=== PATIENT | female | born 1990 | race Hispanic/Latino ===

== ENCOUNTER 2019-03-29 04:58 | Inpatient (IN) | payer SELFPAY ==
[2019-03-29 05:37] VITALS: BMI 27.7
[2019-03-29] MEDS ORDERED: Penicillin G Potassium 5 MILL.UNITS VIAL ONE (07:07)
[2019-03-29] MEDS: Lactated Ringer's 1,000 ML IV SCH ×3 (07:30→13:38)
[2019-03-29] MEDS ORDERED: NS / Oxytocin 40 units/1000ml 1,000 ML IV PRN (08:39)
[2019-03-29] MEDS ORDERED: Lidocaine 1% (PF) 30 ML VIAL SC PRN (08:39)
[2019-03-29] MEDS ORDERED: Ondansetron PF 4 MG/2 ML Vial IVP PRN ×2 (08:39→17:50)
[2019-03-29] MEDS ORDERED: Methylergonovine 0.2 MG/ML VIAL IM PRN (08:39)
[2019-03-29] MEDS ORDERED: Butorphanol Tartrate 1 MG/ML VIAL SLOW IVP PRN (08:39)
[2019-03-29] MEDS ORDERED: Diphenoxylate HCl/Atropine Tablet PO PRN (08:39)
[2019-03-29] MEDS ORDERED: HYDROcodone/Acetaminophen 5/325 mg Tablet PO PRN ×3 (08:39→17:50)
[2019-03-29] MEDS ORDERED: Carboprost 250 MCG/ML AMP IM PRN (08:39)
[2019-03-29] MEDS ORDERED: Ibuprofen 800 MG TAB PO PRN (08:39)
[2019-03-29] MEDS ORDERED: Promethazine HCl 25 MG/ML VIAL IM PRN ×2 (08:39→17:50)
[2019-03-29] MEDS ORDERED: Misoprostol 200 MCG TAB PR PRN (08:39)
[2019-03-29] MEDS ORDERED: Penicillin G Potassium 5 MILL.UNITS in Sodium Chloride 0.9% 100 ML IVPB SCH (08:45)
[2019-03-29] MEDS ORDERED: NS w/ Oxytocin 10 units 500 ML IV SCH ×2 (08:45)
[2019-03-29 09:07] LABS: Hemoglobin 12.6 g/dL (12.0-16.0); Mean Corpuscular HGB CONC 33.5 g/dL (32.0-36.0); Mean Corpuscular Hemoglobin 32.9 pg (27.0-31.0); Mean Corpuscular Volume 98.3 fL (78.0-98.0); Mean Platelet Volume 8.8 fL (7.4-10.4); Platelet Count 184 thou/uL (130-400); RBC Distribution Width 12.5 % (11.5-14.5); Red Blood Cell (RBC) Count 3.83 mill/uL (4.20-5.40); White Blood Cell (WBC) Count 12.2 thou/uL (4.8-10.8)
[2019-03-29] MEDS ORDERED: NS w/ Oxytocin 10 units 500 ML ONE (09:16)
[2019-03-29 10:16] LABS: Syphilis Antibody Nonreactive (Nonreactive); Syphilis Antibody Index 0.03 S/CO (<1.00 Non-Reactive)
[2019-03-29 11:06] LABS: HBSAg Index 0.37 S/CO (0-0.99); Hep B Surf Ag Non-Reactive S/CO (NonReactive)
[2019-03-29] MEDS ORDERED: Fentanyl 4 mcg/Bup 0.1% Cadd 100 ML ONE (11:30)
[2019-03-29] MEDS: Penicillin G 2.5 MILL.units 2.5 MILL.UNITS in Premix Bag 1 BAG IVPB SCH ×3 (11:42→19:21)
[2019-03-29] MEDS ORDERED: NS / Oxytocin 40 units/1000ml 1,000 ML ONE (15:01)
[2019-03-29] MEDS ORDERED: Lidocaine 1% (PF) 30 ML VIAL ONE (15:01)
--- NOTE | 2019-03-29 15:24 | PDOC.EVN ---
Event Note - Event Note Event Note: Called to room for prolonged deceleration. /+2, straight OP. Pushed with patient and fetus rotated to OA position, now +[address] Nix present for delivery.
[2019-03-29] MEDS ORDERED: Methylergonovine 0.2 MG/ML VIAL ONE (15:29)
[2019-03-29] MEDS ORDERED: Misoprostol 200 MCG TAB ONE (15:30)
[2019-03-29] MEDS ORDERED: Adacel (T-DAP) 0.5 ML SYRINGE IM ONE (17:50)
[2019-03-29] MEDS ORDERED: Bisacodyl 10 MG SUPP PR PRN (17:50)
[2019-03-29] MEDS ORDERED: NS / Oxytocin 40 units/1000ml 1,000 ML IV SCH (17:50)
[2019-03-29] MEDS ORDERED: diphenhydrAMINE 25 MG CAP PO PRN (17:50)
[2019-03-29] MEDS ORDERED: Milk Of Magnesia 30 ML UDCUP PO PRN (17:50)
[2019-03-29] MEDS ORDERED: Benzocaine-Menthol 82.5 ML CAN TOP PRN (17:50)
[2019-03-29] MEDS ORDERED: Lanolin Ointment 7 GM TUBE TOP PRN (17:50)
[2019-03-29] MEDS: Ferrous Sulfate 325 MG TAB PO SCH (19:21)
[2019-03-29] MEDS: Ibuprofen 800 MG TAB PO SCH (21:02)
[2019-03-29] MEDS: Docusate Calcium (SURFAK) 240 MG CAP PO SCH (21:02)
[2019-03-30] MEDS: Ibuprofen 800 MG TAB PO SCH ×2 (05:16→14:44)
[2019-03-30] MEDS: Docusate Calcium (SURFAK) 240 MG CAP PO SCH (08:37)
[2019-03-30] MEDS: Ferrous Sulfate 325 MG TAB PO SCH ×2 (08:38→17:33)
[2019-03-30] MEDS ORDERED: Prenatal Vitamin 1 TAB PO SCH (09:00)
[2019-03-30 11:10] VITALS: BP 92/50; TEMP 97.6
== END 2019-03-30 20:05 | disposition home or self-care (01) | DRG 806 ==
LOC: L&D/OP 04:58 → L&D 06:02 → 3SW 18:35
PROVIDERS: ADMIT Family Medicine; ATTEND Family Medicine
PROC: 10E0XZZ Delivery of Products of Conception, External Approach (ICD-10-PCS; principal; 2019-03-29)
PROC: 0KQM0ZZ Repair Perineum Muscle, Open Approach (ICD-10-PCS; 2019-03-29)
DX: O42.92 Full-term premature rupture of membranes, unspecified as to length of time between rupture and onset of labor (principal); O98.52 Other viral diseases complicating childbirth; Z37.0 Single live birth; O99.824 Streptococcus B carrier state complicating childbirth; B00.9 Herpesviral infection, unspecified; O70.1 Second degree perineal laceration during delivery; Z3A.38 38 weeks gestation of pregnancy
CPT/HCPCS: 36415; 51702; 85027; 86780; 86850; 86900; 86901; 87340; 99285; J2001; J2210; J2540; J2590